=== PATIENT | male | born 1990 | race Caucasian/White ===

== ENCOUNTER 2019-08-27 08:23 | Inpatient (IN) ==
[2019-08-27] MEDS ORDERED: SODIUM CHLORIDE 0.9% 1,000 ML IV STA (08:55)
[2019-08-27] MEDS ORDERED: ONDANSETRON 4 MG/2 ML VIAL IV STA (08:55)
[2019-08-27] MEDS ORDERED: SODIUM CHLORIDE 0.9% 2,350 ML IV ONE (08:55)
[2019-08-27] MEDS ORDERED: HYDROmorphone 2 MG/1 ML VIAL IV STA ×2 (08:55→10:28)
[2019-08-27] MEDS ORDERED: PANTOPRAZOLE 40 MG VIAL IV STA (08:55)
[2019-08-27] MEDS ORDERED: ALUM/MAG/SIMETH/LIDO VISC 1:1 30 ML BOTTLE PO STA (08:55)
[2019-08-27] MEDS ORDERED: ALUM/MAG/SIMETH/LIDO VISC 1:1 30 ML BOTTLE PO ONE (08:56)
[2019-08-27 09:25] LABS: Basophils % 0.5 % (0.0-0.8); Eosinophils # 0.1 10*3/uL (0.0-0.87); Eosinophils % 1.1 % (0.00-10.9); Hematocrit 43.4 VOL% (42.0-52.0); Hemoglobin 14.7 GM/DL (14.0-18.0); Immature Granulocytes % 0.4 %; Immature Granulocytes Absolute 0.03 #; Lymphocytes # 2.4 10*3/uL (1.4-4.0); Mean Corpuscular HGB Conc 33.9 GM/DL (32-36); Mean Corpuscular Volume 87.9 FL (87-102); Mean Platelet Volume 10.3 FL (9.6-12.0); Monocytes % 5.3 % (1.7-12.7); Neutrophils % 64.7 % (38.7-73.9); Platelet Count 287 T/CUMM (130-400); Red Blood Count 4.94 MC/CUMM (3.8-5.5); Red Cell Distribution Width 11.9 % (9.3-17.3); White Blood Count 8.4 T/CUMM (4-12)
[2019-08-27 09:47] LABS: Alanine Aminotransferase 230 U/L (16-61); Albumin 3.9 G/DL (3.4-5.0); Alkaline Phosphatase 67 U/L (45-117); Aspartate Amino Transferase 185 U/L (0-37); Blood Urea Nitrogen 10 MG/DL (7-18); Calcium 8.8 MG/DL (8.5-10.1); Estimated Glom Filtration Rate 154 ML/MIN; Glucose 151 MG/DL (74-106); Total Protein 7.6 G/DL (6.4-8.3)
[2019-08-27 11:05] LABS: Apearance,Urine CLEAR (Clear); Bilirubin,Urine Negative (Negative); Blood, Urine Negative (Negative); Glucose,Urine (UA) Negative (Negative); Ketones,Urine Negative (Negative); Mucus,Urine Occasional /LPF (Occasional); Nitrite,Urine Negative (Negative); Protein,Urine Negative; RBC,Urine 6 /HPF (0-4); Squamous Epithelial Cell,Urine Occasional /HPF (0-10); Urine Color Yellow (Yellow); Urine Specific Gravity 1.058 (1.001-1.035); WBC,Urine 1 /HPF (0-6)
[2019-08-27 11:25] LABS: Barbiturates Screen,Urine Negative (Negative); Benzodiazepines Screen,Urine Negative (Negative); Cannabinoid Screen,Urine Negative (Negative); Opiate Screen,Urine Positive (Negative); Phencyclidine Screen,Urine Negative (Negative)
[2019-08-27] MEDS ORDERED: DOCUSATE SODIUM 100 MG CAPSULE PO PRN (13:38)
[2019-08-27] MEDS ORDERED: LACTULOSE 20 GM/30 ML UDCUP PO PRN (13:38)
[2019-08-27] MEDS ORDERED: MORPHINE 4 MG/1 ML VIAL IV PRN (13:38)
[2019-08-27] MEDS ORDERED: ENOXAPARIN 40 MG/0.4 ML SYRINGE SUBCUT SCH (14:00)
[2019-08-27] MEDS ORDERED: ENOXAPARIN 40 MG/0.4 ML SYRINGE ONE (14:48)
[2019-08-27] MEDS: SODIUM CHLORIDE 0.9% 1,000 ML IV SCH (15:10)
[2019-08-27 19:11] LABS: Hepatitis B Core IgM Quant < 0.05 Index; Hepatitis B Surface Ag Quant < 0.10 Index; Hepatitis B Surface Ag Result Negative (Negative); Hepatitis C Virus Ab Quant 0.12 Index; Hepatitis C Virus Ab Result Negative (Negative)
[2019-08-27] MEDS: PANTOPRAZOLE 40 MG VIAL IV SCH (21:05)
[2019-08-28] MEDS: SODIUM CHLORIDE 0.9% 1,000 ML IV SCH ×3 (01:00→19:05)
[2019-08-28 05:57] LABS: % Iron Saturation 22.2 % (18-50)
[2019-08-28 06:08] LABS: Albumin 3.3 G/DL (3.4-5.0); Bilirubin,Total 0.6 MG/DL (0.2-1.0); Calcium 8.3 MG/DL (8.5-10.1); Osmolality,Calculated 279.1 MOS/KG (273-304); Risk Ratio 3.26; Thyroid Stimulating Hormone 1.14 uIU/ml (0.358-3.74); Total Protein 6.6 G/DL (6.4-8.3); VLDL CHOLESTEROL 19.4 MG/DL
[2019-08-28 06:09] LABS: Basophils % 0.3 % (0.0-0.8); Eosinophils # 0.1 10*3/uL (0.0-0.87); Eosinophils % 1.2 % (0.00-10.9); Hematocrit 38.4 VOL% (42.0-52.0); Immature Granulocytes % 0.2 %; Immature Granulocytes Absolute 0.02 #; Lymphocytes # 2.4 10*3/uL (1.4-4.0); Lymphocytes % 26.7 % (21.2-54.2); Mean Corpuscular HGB Conc 33.1 GM/DL (32-36); Mean Corpuscular Volume 90.1 FL (87-102); Mean Platelet Volume 10.8 FL (9.6-12.0); Neutrophils % 63.6 % (38.7-73.9); Red Blood Count 4.26 MC/CUMM (3.8-5.5); Red Cell Distribution Width 12.5 % (9.3-17.3)
[2019-08-28 06:11] LABS: Hemoglobin 12.7 GM/DL (14.0-18.0); Platelet Count 219 T/CUMM (130-400)
[2019-08-28] MEDS: PANTOPRAZOLE 40 MG VIAL IV SCH ×2 (08:48→20:46)
[2019-08-28] MEDS: LACTATED RINGERS 1,000 ML IV SCH (08:48)
[2019-08-28] MEDS ORDERED: PROPOFOL 200 MG/20 ML VIAL IV ONE (10:00)
[2019-08-28] MEDS ORDERED: LIDOCAINE 2% 5 ML VIAL ONE (10:00)
[2019-08-29 05:10] LABS: Basophils % 0.6 % (0.0-0.8); Eosinophils # 0.2 10*3/uL (0.0-0.87); Eosinophils % 2.5 % (0.00-10.9); Hematocrit 40.1 VOL% (42.0-52.0); Hemoglobin 13.1 GM/DL (14.0-18.0); Immature Granulocytes % 0.3 %; Immature Granulocytes Absolute 0.02 #; Lymphocytes # 2.3 10*3/uL (1.4-4.0); Lymphocytes % 32.8 % (21.2-54.2); Mean Corpuscular HGB Conc 32.7 GM/DL (32-36); Mean Corpuscular Volume 91.8 FL (87-102); Mean Platelet Volume 10.8 FL (9.6-12.0); Monocytes % 8.4 % (1.7-12.7); NRBC # 0.03 10*3/uL; Neutrophils % 55.4 % (38.7-73.9); Platelet Count 186 T/CUMM (130-400); Red Blood Count 4.37 MC/CUMM (3.8-5.5); Red Cell Distribution Width 12.1 % (9.3-17.3); White Blood Count 6.9 T/CUMM (4-12)
[2019-08-29 05:36] LABS: Albumin 3.2 G/DL (3.4-5.0); Bilirubin,Total 0.6 MG/DL (0.2-1.0); Calcium 8.3 MG/DL (8.5-10.1); Osmolality,Calculated 279.1 MOS/KG (273-304); Total Protein 6.8 G/DL (6.4-8.3)
[2019-08-29] MEDS: SODIUM CHLORIDE 0.9% 1,000 ML IV SCH ×3 (05:50→20:27)
[2019-08-29] MEDS: LACTATED RINGERS 1,000 ML IV SCH ×2 (09:26→20:25)
[2019-08-29] MEDS: PANTOPRAZOLE 40 MG VIAL IV SCH ×2 (09:28→20:16)
[2019-08-29] MEDS ORDERED: cefOXitin 2,000 MG in SYRINGE 1 EACH IV ONE ×2 (12:55→14:00)
[2019-08-29] MEDS ORDERED: ONDANSETRON 4 MG/2 ML VIAL IV PRN (16:56)
[2019-08-29 17:50] LABS: Apearance,Urine CLEAR (Clear); Bacteria,Urine Occasional /HPF (Few); Bilirubin,Urine Negative (Negative); Blood, Urine Small mg/dL (Negative); Glucose,Urine (UA) 50 mg/dL (Negative); Ketones,Urine 20 mg/dL (Negative); Mucus,Urine Occasional /LPF (Occasional); Nitrite,Urine Negative (Negative); Protein,Urine >=500 MG/DL; RBC,Urine 62 /HPF (0-4); Squamous Epithelial Cell,Urine Occasional /HPF (0-10); Urine Color Amber (Yellow); Urine Specific Gravity 1.039 (1.001-1.035); Urine Urobilinogen < 2.0 EU/DL (0.2-1.0); WBC,Urine 5 /HPF (0-6)
[2019-08-29] MEDS ORDERED: HYDROmorphone 2 MG/1 ML VIAL ONE ×2 (17:56→18:43)
[2019-08-29] MEDS ORDERED: ONDANSETRON 4 MG/2 ML VIAL ONE ×2 (17:57→19:09)
[2019-08-29] MEDS: HYDROmorphone 2 MG/1 ML VIAL IV PRN ×4 (18:02→18:24)
[2019-08-29] MEDS ORDERED: BUPIVACAINE MPF 0.5% /EPI 30 ML VIAL ONE (18:08)
[2019-08-29] MEDS ORDERED: BUPIVACAINE MPF 0.25% 30 ML VIAL ONE (18:13)
[2019-08-29] MEDS ORDERED: HYDROmorphone 2 MG/1 ML VIAL IM ONE (18:38)
[2019-08-29] MEDS ORDERED: METOCLOPRAMIDE 10 MG/2 ML VIAL IV ONE (18:50)
[2019-08-29] MEDS ORDERED: LIDOCAINE 2% 5 ML VIAL ONE (19:08)
[2019-08-29] MEDS ORDERED: SEVOFLURANE 1 UNIT/15 MINUTE INH ONE (19:08)
[2019-08-29] MEDS ORDERED: PROPOFOL 200 MG/20 ML VIAL IV ONE (19:08)
[2019-08-29] MEDS ORDERED: MIDAZOLAM 2 MG/2 ML VIAL ONE (19:08)
[2019-08-29] MEDS ORDERED: METOPROLOL TARTRATE 5 MG/5 ML VIAL IV ONE (19:09)
[2019-08-29] MEDS ORDERED: NEOSTIGMINE 10 MG/10 ML VIAL ONE (19:09)
[2019-08-29] MEDS ORDERED: GLYCOPYRROLATE 0.4 MG/2 ML VIAL ONE (19:09)
[2019-08-29] MEDS ORDERED: ROCURONIUM 100 MG/10 ML VIAL IV ONE (19:09)
[2019-08-29] MEDS ORDERED: SODIUM CHLORIDE 0.9% 250 ML IV ONE (19:09)
[2019-08-29] MEDS ORDERED: LACTATED RINGERS 1,000 ML IV ONE (19:09)
[2019-08-29] MEDS ORDERED: SUCCINYLCHOLINE 200 MG/10 ML VIAL ONE (19:09)
[2019-08-29] MEDS ORDERED: fentaNYL 100 MCG/2 ML VIAL ONE (19:09)
[2019-08-29] MEDS ORDERED: DEXAMETHASONE 4 MG/1 ML VIAL ONE (19:09)
[2019-08-29] MEDS ORDERED: ACETAMINOPHEN 1,000 MG/100 ML VIAL IV ONE (19:09)
[2019-08-29] MEDS ORDERED: KETOROLAC 30 MG/1 ML VIAL ONE (19:09)
[2019-08-29] MEDS ORDERED: NALOXONE 0.4 MG/ML VIAL IV PRN (19:15)
[2019-08-29] MEDS: METHOCARBAMOL INJ 1,000 MG in SODIUM CHLORIDE 0.9% 100 ML IV SCH (20:18)
[2019-08-29] MEDS: ONDANSETRON 4 MG/2 ML VIAL IV PRN (20:25)
[2019-08-29] MEDS: HYDROmorphone PCA 30 MG/30 ML SYRINGE IV SCH (22:00)
[2019-08-30] MEDS: LACTATED RINGERS 1,000 ML IV SCH ×3 (03:25→19:35)
[2019-08-30] MEDS: METHOCARBAMOL INJ 1,000 MG in SODIUM CHLORIDE 0.9% 100 ML IV SCH ×3 (03:25→20:28)
[2019-08-30 07:01] LABS: Basophils % 0.1 % (0.0-0.8); Hematocrit 39.8 VOL% (42.0-52.0); Immature Granulocytes % 0.5 %; Immature Granulocytes Absolute 0.06 #; Lymphocytes # 1.2 10*3/uL (1.4-4.0); Mean Corpuscular HGB Conc 32.7 GM/DL (32-36); Mean Corpuscular Volume 90.2 FL (87-102); Mean Platelet Volume 10.7 FL (9.6-12.0); Monocytes % 5.7 % (1.7-12.7); Neutrophils % 83.7 % (38.7-73.9); Platelet Count 250 T/CUMM (130-400); Red Blood Count 4.41 MC/CUMM (3.8-5.5); White Blood Count 12.1 T/CUMM (4-12)
[2019-08-30 07:23] LABS: Albumin 3.2 G/DL (3.4-5.0); Bilirubin,Total 0.5 MG/DL (0.2-1.0); Calcium 8.2 MG/DL (8.5-10.1); Osmolality,Calculated 278.3 MOS/KG (273-304); Total Protein 6.9 G/DL (6.4-8.3)
[2019-08-30] MEDS: PANTOPRAZOLE 40 MG VIAL IV SCH ×2 (09:48→20:26)
[2019-08-30] MEDS: ONDANSETRON 4 MG/2 ML VIAL IV PRN ×2 (11:56→16:13)
[2019-08-31] MEDS: METHOCARBAMOL INJ 1,000 MG in SODIUM CHLORIDE 0.9% 100 ML IV SCH ×3 (02:56→20:30)
[2019-08-31] MEDS: LACTATED RINGERS 1,000 ML IV SCH ×3 (02:59→14:18)
[2019-08-31 06:20] LABS: Basophils % 0.2 % (0.0-0.8); Eosinophils # 0.1 10*3/uL (0.0-0.87); Eosinophils % 0.8 % (0.00-10.9); Hematocrit 36.7 VOL% (42.0-52.0); Hemoglobin 11.9 GM/DL (14.0-18.0); Immature Granulocytes % 0.4 %; Immature Granulocytes Absolute 0.04 #; Lymphocytes # 2.5 10*3/uL (1.4-4.0); Lymphocytes % 27.2 % (21.2-54.2); Mean Corpuscular HGB Conc 32.4 GM/DL (32-36); Mean Corpuscular Volume 91.3 FL (87-102); Mean Platelet Volume 10.2 FL (9.6-12.0); Monocytes % 8.8 % (1.7-12.7); Neutrophils % 62.6 % (38.7-73.9); Platelet Count 221 T/CUMM (130-400); Red Blood Count 4.02 MC/CUMM (3.8-5.5); Red Cell Distribution Width 12.4 % (9.3-17.3); White Blood Count 9.1 T/CUMM (4-12)
[2019-08-31 06:41] LABS: Calcium 8.3 MG/DL (8.5-10.1); Osmolality,Calculated 278.3 MOS/KG (273-304)
[2019-08-31] MEDS: PANTOPRAZOLE 40 MG VIAL IV SCH ×2 (09:41→20:28)
[2019-08-31] MEDS: ONDANSETRON 4 MG/2 ML VIAL IV PRN ×2 (09:55→17:20)
[2019-08-31] MEDS: HYDROmorphone PCA 30 MG/30 ML SYRINGE IV SCH (12:43)
[2019-09-01] MEDS: METHOCARBAMOL INJ 1,000 MG in SODIUM CHLORIDE 0.9% 100 ML IV SCH ×3 (03:35→20:30)
[2019-09-01 04:35] LABS: Basophils % 0.4 % (0.0-0.8); Eosinophils # 0.2 10*3/uL (0.0-0.87); Eosinophils % 2.3 % (0.00-10.9); Hematocrit 36.8 VOL% (42.0-52.0); Hemoglobin 11.8 GM/DL (14.0-18.0); Immature Granulocytes % 0.4 %; Immature Granulocytes Absolute 0.03 #; Lymphocytes # 2.1 10*3/uL (1.4-4.0); Lymphocytes % 29.9 % (21.2-54.2); Mean Corpuscular HGB Conc 32.1 GM/DL (32-36); Mean Corpuscular Volume 91.8 FL (87-102); Mean Platelet Volume 10.3 FL (9.6-12.0); Monocytes % 10.1 % (1.7-12.7); Neutrophils % 56.9 % (38.7-73.9); Platelet Count 229 T/CUMM (130-400); Red Blood Count 4.01 MC/CUMM (3.8-5.5); Red Cell Distribution Width 12.2 % (9.3-17.3); White Blood Count 6.9 T/CUMM (4-12)
[2019-09-01 04:58] LABS: Calcium 8.2 MG/DL (8.5-10.1); Osmolality,Calculated 278.3 MOS/KG (273-304)
[2019-09-01] MEDS: HYDROmorphone PCA 30 MG/30 ML SYRINGE IV SCH ×2 (05:03→13:16)
[2019-09-01] MEDS: PANTOPRAZOLE 40 MG VIAL IV SCH ×3 (07:46→20:26)
[2019-09-01] MEDS: ONDANSETRON 4 MG/2 ML VIAL IV PRN ×2 (09:26→13:10)
[2019-09-01] MEDS ORDERED: HYDROmorphone 2 MG/1 ML VIAL IV PRN (12:33)
[2019-09-01] MEDS: LACTATED RINGERS 1,000 ML IV SCH (12:58)
[2019-09-02] MEDS: METHOCARBAMOL INJ 1,000 MG in SODIUM CHLORIDE 0.9% 100 ML IV SCH (03:00)
[2019-09-02 06:04] LABS: Basophils % 0.4 % (0.0-0.8); Eosinophils # 0.3 10*3/uL (0.0-0.87); Eosinophils % 3.8 % (0.00-10.9); Hematocrit 36.5 VOL% (42.0-52.0); Hemoglobin 12.3 GM/DL (14.0-18.0); Immature Granulocytes Absolute 0.07 #; Lymphocytes # 2.1 10*3/uL (1.4-4.0); Mean Corpuscular HGB Conc 33.7 GM/DL (32-36); Mean Platelet Volume 10.1 FL (9.6-12.0); Monocytes % 9.1 % (1.7-12.7); Neutrophils % 56.7 % (38.7-73.9); Platelet Count 258 T/CUMM (130-400); Red Cell Distribution Width 12.1 % (9.3-17.3); White Blood Count 7.1 T/CUMM (4-12)
[2019-09-02 06:27] LABS: Calcium 8.4 MG/DL (8.5-10.1); Osmolality,Calculated 276.4 MOS/KG (273-304)
[2019-09-02 06:54] LABS: Eosinophils 5 % (0-10); Hypochromasia 1+; Lymphocytes 35 % (20-55); Platelet Estimate Adequate; Segmented Neutrophils 52 % (50-85); Total Cells Counted 100
[2019-09-02 07:51] VITALS: BP 124/69
[2019-09-02] MEDS: PANTOPRAZOLE 40 MG VIAL IV SCH (09:31)
== END 2019-09-02 12:21 | disposition home or self-care (01) | DRG 415 ==
LOC: N.ED 08:23 → N.EDINP 08:23 → SUATTDRO 13:38 → N.EDINP 15:13 → N.2W 15:15 → N.3E 08-29 19:17
PROVIDERS: ADMIT Internal Medicine; ATTEND Internal Medicine
PROC: LAPCHOL (2019-08-29 14:41)